=== PATIENT | female | born 1975 | race Caucasian/White ===

== ENCOUNTER 2019-03-15 18:40 | Emergency (ER) | payer SELFPAY ==
[2019-03-15 19:21] LABS: APPEARANCE,URINE SLIGHTLY-CLOUDY; BILIRUBIN,URINE NEGATIVE (NEGATIVE); COLOR,URINE YELLOW; GLUCOSE, URINE NEGATIVE (NEGATIVE); KETONES,URINE NEGATIVE (NEGATIVE); LEUKOCYTE ESTERASE,URINE NEGATIVE (NEGATIVE); NITRITE,URINE NEGATIVE (NEGATIVE); PROTEIN,URINE NEGATIVE (NEGATIVE); URINE SPECIFIC GRAVITY 1.021; UROBILINOGEN,URINE NEGATIVE mg/dL (<2.0)
[2019-03-15] MEDS ORDERED: PROMETHAZINE HCL 25 MG TABLET PO ONE (20:08)
[2019-03-15] MEDS ORDERED: OXYCODONE-ACETAMINOPHEN 5-325 MG TABLET PO ONE (20:08)
--- NOTE | 2019-03-15 20:11 | ER Document Report ---
ED Medical Screen (RME) - General Chief Complaint: Flank Pain Stated Complaint: LOWER BACK PAIN Time Seen by Provider: 03/15/19 19:44 Mode of Arrival: Ambulatory Information source: Patient TRAVEL OUTSIDE OF THE [place] IN LAST 30 DAYS: No - HPI Patient complains to provider of: RIGHT FLANK Notes: 03/15/19 20:09 Patient with complaints of right flank pain. Pain started a week ago and is been getting worse. She has a history of kidney stones. She has had a history of nausea, no vomiting or diarrhea. No dysuria or hematuria. Exam No distress, nontoxic-appearing. Mild right-sided CVA tenderness. Obese abdomen. Lungs clear and equal throughout. Heart sounds normal. Plan CBC, CMP, lipase, urine, CT An initial examination was made on the patient as part of the triage process, and it was determined a more comprehensive evaluation was necessary. Initial labs were ordered and patient was transferred to another provider in the ED who assumed care and finished evaluation and plan. - Related Data Allergies/Adverse Reactions: hydrocodone [From Vicodin] Allergy (Verified 03/15/19 18:43) ibuprofen [From Motrin] Allergy (Verified 03/15/19 18:43) ketorolac [From Toradol] Allergy (Verified 03/15/19 18:43) ondansetron [From Zofran] Allergy (Verified 03/15/19 18:43) Penicillins Allergy (Verified 03/15/19 18:43) tramadol Allergy (Verified 03/15/19 18:43) Past Medical History Renal/ Medical History: Denies: Hx Peritoneal Dialysis Physical Exam - Vital signs Vitals: Temp Pulse Resp BP Pulse Ox 98.3 F 87 18 153/84 H 97 03/15/19 18:54 03/15/19 18:54 03/15/19 18:54 03/15/19 18:54 03/15/19 18:54 Course - Vital Signs Vital signs: Temp Pulse Resp BP Pulse Ox 98.3 F 87 18 153/84 H 97 03/15/19 18:54 03/15/19 18:54 03/15/19 18:54 03/15/19 18:54 03/15/19 18:54 - Laboratory Laboratory results interpreted by me: 03/15/19 18:42 Urine Blood MODERATE H
[2019-03-15 20:41] LABS: ABSOLUTE BASOPHILS # (AUTO) 0.1 10^3/uL (0.0-0.2); ABSOLUTE EOSINOPHILS # (AUTO) 0.2 10^3/uL (0.0-0.6); ABSOLUTE LYMPHOCYTES (AUTO) 3.1 10^3/uL (0.5-4.7); ABSOLUTE MONOCYTES (AUTO) 0.6 10^3/uL (0.1-1.4); ABSOLUTE NEUT (AUTO) 5.9 10^3/uL (1.7-8.2); BASOPHILS % (AUTO) 0.8 % (0-2); EOSINOPHILS % (AUTO) 1.5 % (0-6); HEMATOCRIT 43.8 % (36.0-47.0); HEMOGLOBIN 14.5 g/dL (12.0-15.5); LYMPHOCYTES % (AUTO) 31.3 % (13-45); MEAN CORPUSCULAR HEMOGLOBIN 30.2 pg (27.0-33.4); MEAN CORPUSCULAR HGB CONC 33.1 g/dL (32.0-36.0); MEAN CORPUSCULAR VOLUME 91 fl (80-97); MONOCYTES % (AUTO) 6.5 % (3-13); PLATELET COUNT 295 10^3/uL (150-450); RED CELL DISTRIBUTION WIDTH 13.4 % (11.5-14.0); SEGMENTED NEUTROPHILS % (AUTO) 59.9 % (42-78); TOTAL CELLS COUNTED % (AUTO) 100 %; WHITE BLOOD COUNT 9.9 10^3/uL (4.0-10.5)
[2019-03-15 21:00] LABS: ALANINE AMINOTRANSFERASE 38 U/L (9-52); ALBUMIN 4.2 g/dL (3.5-5.0); ALKALINE PHOSPHATASE 77 U/L (38-126); ANION GAP 8 (5-19); ASPARTATE AMINO TRANSFERASE 36 U/L (14-36); BILIRUBIN,DIRECT 0.2 mg/dL (0.0-0.4); BILIRUBIN,TOTAL 0.3 mg/dL (0.2-1.3); BLOOD UREA NITROGEN 12 mg/dL (7-20); CALCIUM 9.4 mg/dL (8.4-10.2); CARBON DIOXIDE 28 mmol/L (22-30); CHLORIDE 106 mmol/L (98-107); GLUCOSE 84 mg/dL (75-110); LIPASE 127.5 U/L (23-300); POTASSIUM 3.7 mmol/L (3.6-5.0); SODIUM 142.2 mmol/L (137-145); TOTAL PROTEIN 7.6 g/dL (6.3-8.2)
--- NOTE | 2019-03-15 21:26 | RADIOLOGY REPORT (SQ) ---
EXAM DESCRIPTION: [facility]: CT ABDOMEN PELVIS WITHOUT IV CONTRAST CLINICAL HISTORY: 43 years Female; RIGHT FLANK PAIN TECHNIQUE: CT of the abdomen and pelvis without contrast. All CT scans at this facility use dose modulation, iterative reconstruction, and/or weight based dosing when appropriate to reduce radiation dose to as low as reasonably achievable. COMPARISON: None. FINDINGS: Abdomen: Liver: Subtle 6 mm hypodensity in segment 4A is too small to reliably characterize, but likely a cyst. 7 mm slightly hypodense lesion in segment 3, image 23, cannot be reliably characterized. Gallbladder: Nondistended Pancreas:Within normal limits Spleen:Within normal limits Right kidney:No hydronephrosis. No renal or ureteral calculi. Left kidney:No hydronephrosis. No renal or ureteral calculi. Adrenal glands:Within normal limits Vascular structures:Within normal limits (although limited evaluation on noncontrast exam). Pelvis: Small bowel:No significant distention. Appendix:Within normal limits Colon:No distention or acute pericolonic edema. No free intraperitoneal fluid or air. Uterus is grossly unremarkable. No adnexal enlargement. No pelvic adenopathy. Chronic degenerative changes are noted in the lumbar and visualized thoracic spine. No acute soft tissue edema. Note that evaluation of the bowel and solid organs is somewhat limited due to lack of intravenous and oral contrast. IMPRESSION: 1. No acute findings. 2. No renal or ureteral calculi. No hydronephrosis. 3. 2 small hepatic lesions less than 7 mm, not reliably characterized on this exam. If there is clinical concern for hepatic pathology, MRI with and without contrast would provide more definitive evaluation.
--- NOTE | 2019-03-15 22:37 | RADIOLOGY REPORT (SQ) ---
EXAM DESCRIPTION: [facility]: XR SHOULDER 2 OR MORE VIEWS Views: 3 CLINICAL HISTORY: 43 years Female, pain COMPARISON: None. FINDINGS: Negative for acute fracture, dislocation, or radiopaque foreign body. Mild degenerative changes are noted at the AC joint, without subluxation. There is mild subacromial space narrowing, with minimal subacromial osteophyte formation. IMPRESSION: 1. No acute findings. 2. Mild chronic degenerative changes. Please correlate with clinical symptoms regarding possibility of chronic rotator cuff pathology.
--- NOTE | 2019-03-15 22:45 | ER Document Report ---
ED General - General Chief Complaint: Flank Pain Stated Complaint: LOWER BACK PAIN Time Seen by Provider: 03/15/19 19:44 Mode of Arrival: Ambulatory Notes: Patient is a 43-year-old female presents to the emergency department for right flank pain and left shoulder pain. Patient states she has had intermittent right flank pain radiating around to her right groin for the last week. States today it "caught me off guard." States she fell into the side of her vehicle while trying to get into the car. Patient states that is when she sustained an injury to her left shoulder. Patient is denying hitting her head, neck, back, loss of consciousness. Patient states the pain in her right flank also made her nauseous but she has not vomited. Patient states she does have a history of kidney stones and has Underwent lithotripsy in the past. Past medical history: Kidney stones, restless leg syndrome, DVT Medications: Gabapentin Allergies: Penicillin, tramadol, Zofran, Toradol, Reglan, Vicodin Last menstrual period 03/09/2019. TRAVEL OUTSIDE OF THE [place] IN LAST 30 DAYS: No - Related Data Allergies/Adverse Reactions: hydrocodone [From Vicodin] Allergy (Verified 03/15/19 18:43) ibuprofen [From Motrin] Allergy (Verified 03/15/19 18:43) ketorolac [From Toradol] Allergy (Verified 03/15/19 18:43) ondansetron [From Zofran] Allergy (Verified 03/15/19 18:43) Penicillins Allergy (Verified 03/15/19 18:43) tramadol Allergy (Verified 03/15/19 18:43) Past Medical History - General Information source: Patient - Social History Smoking Status: Unknown if Ever Smoked Family History: Reviewed & Not Pertinent Patient has suicidal ideation: No Patient has homicidal ideation: No Renal/ Medical History: Denies: Hx Peritoneal Dialysis Review of Systems - Review of Systems Constitutional: denies: Fever EENT: No symptoms reported Cardiovascular: No symptoms reported Respiratory: No symptoms reported Gastrointestinal: See HPI Genitourinary: See HPI. denies: Burning, Dysuria Female Genitourinary: See HPI Musculoskeletal: See HPI Skin: No symptoms reported Hematologic/Lymphatic: No symptoms reported Neurological/Psychological: No symptoms reported Physical Exam - Vital signs Vitals: Temp Pulse Resp BP Pulse Ox 98.3 F 87 18 153/84 H 97 05/02/19 18:54 03/15/19 18:54 03/15/19 18:54 03/15/19 18:54 03/15/19 18:54 - Notes Notes: GENERAL: Morbidly obese alert, interacts well. No acute distress. HEAD: Normocephalic, atraumatic. EYES: Pupils equal, round, and reactive to light. Extraocular movements intact. ENT: Oral mucosa moist, tongue midline. NECK: Full range of motion. Supple. Trachea midline. LUNGS: Clear to auscultation bilaterally, no wheezes, rales, or rhonchi. No respiratory distress. HEART: Regular rate and rhythm. No murmur ABDOMEN: Soft, non-tender. Non-distended. Bowel sounds present in all 4 quadrants. No McBurney's point tenderness, no Hernandez sign noted. EXTREMITIES: Moves all 4 extremities spontaneously. No edema, normal radial and dorsalis pedis pulses bilaterally. No cyanosis. Patient has full range of motion left shoulder just with pain. No obvious signs of trauma noted BACK: no cervical, thoracic, lumbar midline tenderness. No saddle anesthesia, normal distal neurovascular exam. Slight right CVA tenderness noted, no left CVA tenderness noted NEUROLOGICAL: Alert and oriented x3. Normal speech. cranial nerves II through XII grossly intact PSYCH: Normal affect, normal mood. SKIN: Warm, dry, normal turgor. No rashes or lesions noted. Course - Re-evaluation Re-evalutation: 03/15/19 22:47 Patient's CBC and CMP are within normal limits, patient's urine does show signs of blood. Patient states her last menstrual cycle was on 03/09/2019. This could be due to recent kidney stone passing. Patient CT shows no stones of kidney stones or hydronephrosis. Patient was treated with oxycodone and Phenergan in the emergency room. Patient's left shoulder x-ray was also negative for acute fracture. Discussed with patient there is a possibility that she recently passed a stone which is what was causing her pain. Otherwise discussed need to follow-up with primary care provider for continued care. Patient voices understanding is stable for discharge. - Vital Signs Vital signs: Temp Pulse Resp BP Pulse Ox 98.3 F 87 18 153/84 H 97 03/15/19 18:54 05/02/19 18:54 03/15/19 18:54 03/15/19 18:54 03/15/19 18:54 - Laboratory Result Diagrams: 03/15/19 20:23 03/15/19 20:23 Laboratory results interpreted by me: 03/15/19 18:42 Urine Blood MODERATE H Discharge - Discharge Clinical Impression: Right flank pain, Left anterior shoulder pain Condition: Stable Disposition: HOME, SELF-CARE Instructions: Abdominal Pain ([facility]), Shoulder Injury ([facility]), Exercise Program for the Shoulder ([facility]), Flank Pain ([facility]) Additional Instructions: As we discussed you have been seen and treated in the emergency department for your right flank pain and your left shoulder pain. X-rays of your left shoulder revealed no signs of fractures. Like we discussed you should follow-up with your primary care provider for continued management of your pain. CT imaging of your abdomen also showed no signs of acute kidney stones. You do have blood in your urine which could be a sign that you recently passed a stone but there are currently no kidney stones visible on your CT imaging. Please make sure you stay well-hydrated and follow-up with your primary care provider in the next 24 to 48 hours. Please return to the emergency room for any other concerning symptoms. Forms: Return to Work
[2019-03-15 23:24] VITALS: BP 127/79
== END 2019-03-15 23:25 | disposition home or self-care (01) ==
LOC: ER 18:40
DX: R10.9 Unspecified abdominal pain (principal); R11.0 Nausea; M25.512 Pain in left shoulder; W22.8XXA Striking against or struck by other objects, initial encounter; G25.81 Restless legs syndrome; Z79.899 Other long term (current) drug therapy; Z87.442 Personal history of urinary calculi; Z88.0 Allergy status to penicillin; Z88.5 Allergy status to narcotic agent; Z88.8 Allergy status to other drugs, medicaments and biological substances; Z88.6 Allergy status to analgesic agent
CPT/HCPCS: 36415; 74176; 80053; 81001; 81025; 83690; 85025; 99284